=== PATIENT | female | born 1955 | race Caucasian/White ===

== ENCOUNTER 2023-03-18 08:13 | Observation (INO) | payer MEDICARE ==
[~2023-03-18] VITALS: Ht 162.6 cm; Wt 54.4 kg
[2023-03-18] MEDS ORDERED: Amoxicillin500 MG PO (08:34)
[2023-03-18] MEDS ORDERED: FLOVENT HFA12 GM IH (08:34)
[2023-03-18] MEDS ORDERED: PRED20 PO (08:35)
[2023-03-18 09:27] LABS: BASOPHILS ABSOLUTE AUTO 0.08 K/mm3 (0.00-0.23); BASOPHILS PERCENT AUTO 1 % (0-2); EOSINOPHILS ABSOLUTE AUTO 0.03 K/mm3 (0.00-0.68); EOSINOPHILS PERCENT AUTO 0 % (0-6); Hematocrit 46.1 % (33.0-51.0); Hemoglobin 15.4 g/dL (11.5-16.0); IMMATURE GRAN ABSOLUTE AUTO 0.02 K/mm3 (0.00-0.10); IMMATURE GRAN PERCENT AUTO 0 % (0-1); LYMPHOCYTES ABSOLUTE AUTO 1.36 K/mm3 (0.84-5.20); LYMPHOCYTES PERCENT AUTO 13 % (21-46); MONOCYTES ABSOLUTE AUTO 0.85 K/mm3 (0.16-1.47); MONOCYTES PERCENT AUTO 8 % (4-13); Mean Corpuscular HGB 30.7 pg (26.0-34.0); Mean Corpuscular HGB Conc 33.4 g/dL (31.5-36.5); Mean Corpuscular Volume 92 fL (80-100); Mean Platelet Volume 9.6 fL (9.1-12.4); NEUTROPHILS ABSOLUTE AUTO 8.41 K/mm3 (1.96-9.15); NEUTROPHILS PERCENT AUTO 78 % (41-73); Platelet Count 297 K/mm3 (150-400); RDW Coefficient Variation 13.2 % (11.7-14.2); RDW Standard Deviation 44.2 fL (35.1-46.3); Red Blood Cell Count 5.02 M/mm3 (3.80-5.20); White Blood Cell Count 10.75 K/mm3 (4.00-11.30)
[2023-03-18 09:51] LABS: Albumin, Blood 3.2 g/dL (3.4-5.0); Albumin/Globulin Ratio 0.9 (0.8-1.8); Bilirubin, Total 0.3 mg/dL (0.1-1.0); Bun/Creatinine Ratio 14.7 (12.0-20.0); Calcium, Blood 8.8 mg/dL (8.5-10.1); Creatinine, Blood 0.68 mg/dL (0.40-1.00); Globulin, Blood 3.6 g/dL (2.2-4.0); Potassium, Blood 4.5 mmol/L (3.5-5.5); Total Protein, Blood 6.8 g/dL (6.4-8.2)
[2023-03-18 10:00] LABS: Influenza A, PCR NEGATIVE (NEGATIVE); Influenza B, PCR NEGATIVE (NEGATIVE); Resp Syncytial Virus, PCR NEGATIVE (NEGATIVE); SARS-Cov-2 (COVID-19) PCR, MMC NEGATIVE (NEGATIVE)
[2023-03-18 13:33] LABS: International Normalized Ratio 0.96; Prothrombin Time Results 10.1 Sec (9.7-11.5)
[2023-03-18 13:36] VITALS: BP 152/72
--- NOTE | 2023-03-18 13:43 | NUR ---
ER ADMIT PT REPORT RECIVED FROM ER. PT ARRIVED VIA GURNEY. IN ATTENDANCE. PT A/O IN NO ACUTE DISTRESS. CRYING. TRANSFERED PT WITH SLIDER SHEET AND 4 ASSIST TO NEW BED. PT TOLERATED WELL. CONTINUE POC.
--- NOTE | 2023-03-18 16:09 | NUR ---
Spoke with Dr Cameron and discussed case. Pt likely to D/C tomorrow and may benefit from discussion regarding AD/POLST. Arrived to Pt's room. Pt on her way for ultrasound guided thoracentesis. Spouse Ashish remains in the room. Ashish appears to be experiencing some emotional distress. Offered therapeutic listening and validated concerns. Allowed Ashish to discuss thoughts and fears. Continued supportive visit. Spoke with Primary RN Tiffanie and discussed case. Palliative Care will F/U with Pt and family tomorrow to discuss AD/POLST.
--- NOTE | 2023-03-18 16:47 | NUR ---
POST THORACENTISIS PT RETURNED FROM THORACENTESIS. SHE VOICED IMPROVED BREATHING EFFORT. VOICE MORE CLEAR. LESS STRAINED. BAND AIDE TO RIGHT CHEST CD&I. SPOUCE AT BEDSIDE. CONTINUE POC.
[2023-03-18 19:36] VITALS: BP 141/74
[2023-03-19 02:37] VITALS: BP 127/76
[2023-03-19 07:52] VITALS: BP 128/75
--- NOTE | 2023-03-19 11:46 | NUR ---
Pt resting in bed and is A&OX4. Pt denies pain, nausea, and dyspnea. Pt reports mild but manageable anxiety. Pt's spouse Ashish at bedside. Engaged in discussion regarding advanced directives and POLST. Educated on choices and meanings of life support and tube feedings. Educated on life sustaining treatments including risks and implications to CPR/Intubation. Discussed the importance of appointing a healthcare route sales representative. Offered therapeutic listening and answered questions. Dr Cameron in to see Pt. Ended visit. Palliative Care will remain available
[2023-03-19] MEDS ORDERED: IPRAT-ALBUT 0.5-3 ML INH (11:56)
[2023-03-19] MEDS ORDERED: ALBU8HFA2 INH (11:58)
--- NOTE | 2023-03-19 13:17 | NUR ---
DISCHARGE NOTE- PT WAS GIVEN VERBAL AND WRITTEN DISCHARGE INSTRUCTIONS AND ACKNOWLEDGED UNDERSTANDING OF THEM. PT HAS A FOLLOW UP WITH DR OCNNOR SCHEDULED FOR 03-24-23 AT 3:15. THEY ARE AWARE. H&P, IMAGES, DISCHARGE SUMMARY, AND LABS ALL FAXED TO DR CONNOR'S OFFICE WITH FACE SHEET. CYTOLOGY REPORT NOT BACK YET SO NOT FAXED AT THIS TIME. SPOKE TO PATHOLOGY AND A COPY WILL BE SENT TO DR CONNOR'S OFFICE WHEN IT GENERATES. PT IV'S AND TELE DC'D AT THE TIME OF DISCHARGE. PT ESCORTED OUT VIA WC NO S&S OF DISTRESS AT THE TIME OF DISCHARGE. HOME O2 EVAL COMPLETED PRIOR TO DISCHARGE NO O2 NEEDS. PT ON ROOM AIR AT THE TIME OF DISCHARGE.
== END 2023-03-19 13:14 | disposition home or self-care (01) ==
LOC: ER 08:13 → MEDS 11:49 → ENPENDDIS 03-19 11:09 → MEDS 03-19 13:14
PROVIDERS: Student in an Organized Health Care Education/Training Program; ADMIT Internal Medicine
DX: J91.0 Malignant pleural effusion (principal); J96.01 Acute respiratory failure with hypoxia; J44.9 Chronic obstructive pulmonary disease, unspecified; R64 Cachexia; Z72.0 Tobacco use; Z88.0 Allergy status to penicillin
CPT/HCPCS: 0241U; 32555; 71045; 71260; 80053; 83880; 84145; 85025; 85610; 85730; 88108; 88305; 88341; 88342; 93005; 93010; 94640; 94644; 94664; 94760; 94761; 96374-59; 99285-25; A9270; G0378; J1100; J7512; Q9967

== ENCOUNTER 2023-04-02 14:22 | Day surgery (SDC) | payer MEDICARE ==
[~2023-04-02 14:22] MED LIST: ALBU8HFA2 INH; Amoxicillin500 MG PO; FLOVENT HFA12 GM IH; IPRAT-ALBUT 0.5-3 ML INH; PRED20 PO
== END 2023-04-02 23:49 | disposition home or self-care (01) ==
LOC: US 14:22
DX: C34.11 Malignant neoplasm of upper lobe, right bronchus or lung (principal)
CPT/HCPCS: 32555; 71045

== ENCOUNTER 2023-04-08 09:25 | Day surgery (SDC) | payer MEDICARE | END 2023-04-08 22:48 | disposition home or self-care (01) | LOC: US 09:25 | DX: C34.11 Malignant neoplasm of upper lobe, right bronchus or lung (principal) | CPT/HCPCS: 32555; 71045 ==

== ENCOUNTER 2023-04-15 09:21 | Day surgery (SDC) | payer MEDICARE | END 2023-04-15 22:51 | disposition home or self-care (01) | LOC: US 09:21 | DX: C34.11 Malignant neoplasm of upper lobe, right bronchus or lung (principal) | CPT/HCPCS: 32555; 71045 ==

== ENCOUNTER 2023-04-22 14:55 | Day surgery (SDC) | payer MEDICARE | END 2023-04-22 22:53 | disposition home or self-care (01) | LOC: US 14:55 | DX: C34.11 Malignant neoplasm of upper lobe, right bronchus or lung (principal); J91.0 Malignant pleural effusion | CPT/HCPCS: 32555; 71045 ==

== ENCOUNTER 2023-04-28 14:37 | Day surgery (SDC) | payer MEDICARE | END 2023-04-28 23:13 | disposition home or self-care (01) | LOC: US 14:37 | DX: C34.11 Malignant neoplasm of upper lobe, right bronchus or lung (principal); J91.0 Malignant pleural effusion | CPT/HCPCS: 32555; 71045 ==

== ENCOUNTER 2023-05-06 09:37 | Day surgery (SDC) | payer MEDICARE | END 2023-05-06 23:00 | disposition home or self-care (01) | LOC: US 09:37 | DX: C34.11 Malignant neoplasm of upper lobe, right bronchus or lung (principal); J91.0 Malignant pleural effusion | CPT/HCPCS: 76604 ==

== ENCOUNTER 2023-05-13 08:32 | Day surgery (SDC) | payer MEDICARE | END 2023-05-13 23:02 | disposition home or self-care (01) | LOC: US 08:32 | DX: C34.11 Malignant neoplasm of upper lobe, right bronchus or lung (principal); J91.0 Malignant pleural effusion; J44.9 Chronic obstructive pulmonary disease, unspecified; Z87.891 Personal history of nicotine dependence; Z79.899 Other long term (current) drug therapy | CPT/HCPCS: 76604 ==

== ENCOUNTER → 2023-05-20 | Outpatient (CLI) | payer MEDICARE ==
[2023-05-20 08:08] LABS: International Normalized Ratio 0.95
== END ==
LOC: LAB SHORT 07:28 → LAB 07:28
PROVIDERS: Internal Medicine Hematology & Oncology
DX: C34.90 Malignant neoplasm of unspecified part of unspecified bronchus or lung (principal); J91.0 Malignant pleural effusion; Z79.82 Long term (current) use of aspirin
CPT/HCPCS: 85610

== ENCOUNTER 2023-11-19 09:05 | Emergency (ER) | payer MEDICARE ==
[~2023-11-19] VITALS: Ht 160 cm; Wt 58.5 kg
[2023-11-19 10:06] VITALS: BP 112/95
[2023-11-19] MEDS ORDERED: MAGNESIUM OXID500 MG PO (10:19)
[2023-11-19] MEDS ORDERED: LEVO750 PO (10:19)
[2023-11-19] MEDS ORDERED: Vitamin D1000 UNI1 PO (10:19)
[2023-11-19] MEDS ORDERED: DOCU100 PO (10:19)
== END 2023-11-19 11:10 | disposition home or self-care (01) ==
LOC: ER 09:05
DX: I82.611 Acute embolism and thrombosis of superficial veins of right upper extremity (principal); J45.909 Unspecified asthma, uncomplicated; Z79.899 Other long term (current) drug therapy
CPT/HCPCS: 93971; 99283-25

== ENCOUNTER 2024-01-26 09:31 | Emergency (ER) | payer OTHER, MEDICARE ==
[~2024-01-26] VITALS: Ht 162.6 cm; Wt 57.1 kg
[~2024-01-26 09:31] MED LIST changes: +DOCU100 PO; +LEVO750 PO; +MAGNESIUM OXID500 MG PO; +Vitamin D1000 UNI1 PO
[2024-01-26 09:37] VITALS: BP 128/85
== END 2024-01-26 11:23 | disposition home or self-care (01) ==
LOC: ER 09:31
DX: S61.411A Laceration without foreign body of right hand, initial encounter (principal); W01.10XA Fall on same level from slipping, tripping and stumbling with subsequent striking against unspecified object, initial encounter
CPT/HCPCS: 73130; 99283-25

== ENCOUNTER 2024-08-28 09:46 | Inpatient (IN) | payer MEDICARE ==
[~2024-08-28] VITALS: Ht 167.6 cm; Wt 55.4 kg
[~2024-08-28 09:46] MED LIST changes: -ALBU8HFA2 INH; +ALBU90OI INH
[2024-08-28 10:21] LABS: Hematocrit 32.5 % (33.0-51.0); Hemoglobin 10.7 g/dL (11.5-16.0); Mean Corpuscular HGB 33.8 pg (26.0-34.0); Mean Corpuscular HGB Conc 32.9 g/dL (31.5-36.5); Mean Corpuscular Volume 103 fL (80-100); Mean Platelet Volume 9.1 fL (9.1-12.4); Platelet Count 182 K/mm3 (150-400); RDW Coefficient Variation 13.9 % (11.7-14.2); RDW Standard Deviation 52.8 fL (35.1-46.3); Red Blood Cell Count 3.17 M/mm3 (3.80-5.20); White Blood Cell Count 12.49 K/mm3 (4.00-11.30)
[2024-08-28 10:44] LABS: IMMATURE GRAN ABSOLUTE AUTO 0.64 K/mm3 (0.00-0.10); IMMATURE GRAN PERCENT AUTO 5 % (0-1)
[2024-08-28 10:45] LABS: BASOPHILS PERCENT MAN 0 % (0-2); EOSINOPHILS PERCENT MAN 0 % (0-6); LYMPHOCYTES ABSOLUTE MAN 0.74 K/mm3 (0.84-5.20); LYMPHOCYTES PERCENT MAN 6 % (21-46); MONOCYTES ABSOLUTE MAN 0.37 K/mm3 (0.16-1.47); MONOCYTES PERCENT MAN 3 % (4-13); NEUTROPHILS ABSOLUTE MAN 11.36 K/mm3 (1.96-9.15); SEG NEUTROPHILS PERCENT MAN 91 % (41-73); TOTAL CELLS COUNTED 100
[2024-08-28 11:05] LABS: Albumin, Blood 3.4 g/dL (3.4-5.0); Albumin/Globulin Ratio 0.9 (0.8-1.8); Bilirubin, Total 0.3 mg/dL (0.1-1.0); Bun/Creatinine Ratio 14.7 (12.0-20.0); Calcium, Blood 8.9 mg/dL (8.5-10.1); Creatinine, Blood 0.75 mg/dL (0.40-1.00); Globulin, Blood 3.8 g/dL (2.2-4.0); Potassium, Blood 3.9 mmol/L (3.5-5.5); Total Protein, Blood 7.2 g/dL (6.4-8.2)
[2024-08-28 11:41] LABS: Influenza A, PCR NEGATIVE (NEGATIVE); Influenza B, PCR NEGATIVE (NEGATIVE); Resp Syncytial Virus, PCR NEGATIVE (NEGATIVE); SARS-Cov-2 (COVID-19) PCR, MMC NEGATIVE (NEGATIVE)
[2024-08-28] MEDS ORDERED: Ondansetron 4 MG TAB PO PRN (16:40)
[2024-08-28] MEDS ORDERED: FLU VACC TS2024-25(6MOS UP)/PF 45 MCG/0.5 ML SYRINGE IM SCH (16:40)
[2024-08-28 16:49] LABS: International Normalized Ratio 1.03
[2024-08-28] MEDS ORDERED: Azithromycin 500 MG in NS 250 ML IV SCH (18:00)
[2024-08-28] MEDS ORDERED: CefTRIAXone Sodium 1,000 MG in NS 100 ML IV SCH (18:00)
[2024-08-28 20:55] VITALS: BP 108/72
--- NOTE | 2024-08-28 21:54 | NUR ---
ADMIT NOTE 69 YR OLD FEMALE ADMITTED TO FLOOR WITH DX OF MALIGNANT PLEURAL EFFUSION. ACCOMPANIED BY . ALERT AND ORIENTED, QUIET. HX LUNG CA, LUNG SOUNDS DIMINISHED AND WET. ON O2 PER NC AT 4L/MIN. HOB ELEVATED. REPORTS SEVERE ALLERGY TO DAIRY PRODUCTS, "ANAPHYLACTIC" ISSUES IN THE PAST. ALERT AND ORIENTED X 4, ORIENTED TO USE OF CALL LIGHT AND BED CONTROL. CALL LIGHT IN REACH. RAILS UP X 2 AND AGREES TO USE CALL LIGHT IF NEEDS ARRISE. THORACENTESIS ORDERED FOR TOMORROW. NOTIFIED OF RESP ISSUSE, CONT PULSE OX ORDERS OBTAINED, RT NOTIFIED. WILL MONITOR
--- NOTE | 2024-08-28 22:54 | NUR ---
LEFT EARLIER, PT RESTING QUIETLY. RT TO PLACE CONTINUOUS PULSE OX. CALL LIGHTIN REACH
[2024-08-29] MEDS ORDERED: TraZODone HCl 50 MG Tab PO PRN (00:30)
--- NOTE | 2024-08-29 03:16 | NUR ---
HUMAN RESOURCES ADVISOR SUMMARY WAS ADMITTED EARLIER IN THE SHIFT WITH DX OF MALIGNANT PLEURAL EFFUSION. ALERT AND ORIENTED. LUNG SOUUNDS DIMINISHED, WET. ON HUMIDIFIED O2 4L/MIN PER NC. PLACED ON CONTINUOUS PULSE OX, SATS IN THE 90'S AND HR IN THE 70'S. HOB ELEVATED FOR COMFORT. HAS BEEN RESTING QUIETLY WITH OCCASIONAL INTERRUPTIONS FOR CHANGING DUE TO INCONTENENCE. CALL LIGHT IN REACH, RAILS UP X 2 AND BED IN LOW POSITION FOR SAFETY. SCHEDULED FOR POSSIBLE THORACENTESIS LATER TODAY. WILL CONT TO MONITOR.
[2024-08-29 04:38] VITALS: BP 98/60
[2024-08-29 05:33] LABS: Hematocrit 30.7 % (33.0-51.0); Mean Corpuscular HGB 33.6 pg (26.0-34.0); Mean Corpuscular HGB Conc 32.6 g/dL (31.5-36.5); Mean Corpuscular Volume 103 fL (80-100); Mean Platelet Volume 9.3 fL (9.1-12.4); Platelet Count 146 K/mm3 (150-400); RDW Coefficient Variation 13.9 % (11.7-14.2); RDW Standard Deviation 52.7 fL (35.1-46.3); Red Blood Cell Count 2.98 M/mm3 (3.80-5.20); White Blood Cell Count 7.31 K/mm3 (4.00-11.30)
[2024-08-29 06:05] LABS: BAND PERCENT MAN 24 % (0-8); BASOPHILS PERCENT MAN 0 % (0-2); EOSINOPHILS PERCENT MAN 0 % (0-6); LYMPHOCYTES ABSOLUTE MAN 0.65 K/mm3 (0.84-5.20); LYMPHOCYTES PERCENT MAN 9 % (21-46); MONOCYTES ABSOLUTE MAN 0.36 K/mm3 (0.16-1.47); MONOCYTES PERCENT MAN 5 % (4-13); NEUTROPHILS ABSOLUTE MAN 6.21 K/mm3 (1.96-9.15); PLASMA CELL ABSOLUTE MAN 0.07 K/mm3 (0.00-0.00); PLASMA CELLS PERCENT MAN 1 % (0-0); SEG NEUTROPHILS PERCENT MAN 61 % (41-73); TOTAL CELLS COUNTED 100
[2024-08-29 06:52] LABS: Albumin/Globulin Ratio 0.8 (0.8-1.8); Bilirubin, Total 0.3 mg/dL (0.1-1.0); Bun/Creatinine Ratio 15.3 (12.0-20.0); Calcium, Blood 8.3 mg/dL (8.5-10.1); Creatinine, Blood 0.72 mg/dL (0.40-1.00); Globulin, Blood 3.6 g/dL (2.2-4.0); Magnesium, Blood 1.8 mg/dL (1.6-2.4); Potassium, Blood 4.2 mmol/L (3.5-5.5); Total Protein, Blood 6.6 g/dL (6.4-8.2)
[2024-08-29 07:55] VITALS: BP 104/62
[2024-08-29] MEDS ORDERED: Enoxaparin 40 MG/0.4 ML SYR SC SCH (09:00)
[2024-08-29] MEDS ORDERED: Acetaminophen 325 MG TABLET PO PRN (12:15)
[2024-08-29] MEDS ORDERED: OxyCODONE HCL 5 MG TAB PO PRN (12:20)
[2024-08-29] MEDS ORDERED: Acetaminophen325 M1 PO (12:23)
[2024-08-29] MEDS ORDERED: Acetaminophen 160MG / 5ML 10.15 UDC PO PRN (13:15)
[2024-08-29] MEDS ORDERED: Lactated Ringer's 1,000 ML IV SCH (16:15)
[2024-08-29] MEDS ORDERED: NS 250 ML IV PRN (16:25)
[2024-08-29 17:54] VITALS: BP 91/59
--- NOTE | 2024-08-29 18:27 | NUR ---
SHIFT SUMMARY PATIENT ALERT AND INTERACTIVE. PATIENT SITTING UP AT BEDSIDE FOR MEALS. R SIDE THORACENTESIS DONE WITH 1000 OUT. PATIENT TO POSSIBLY HAVE THE L SIDE DONE TOMORROW. PATIENT WEAK AND ONLY VERBALIZING SORENESS AT R SIDE AND WHEN SHE TAKES A DEEP BREATH. 02 TITRATED DOWN TO 2-3 LITERS AFTER THORACENTESIS. BP LOW AFTER THORACENTESIS. PROVIDER CONTACTED. IV FLUIDS INITIATED. BP REPEATED AFTER FLUIDS INITIATED. BP IMPROVED. PATIENT ENCOURAAGED TO DRINK MORE FLUIDS. EDUCATION PROVIDED TO PATIENT AND RELATED TO FLUID SHIFT AFTER THORACENTESIS, KIDNEY PERFUSION.
[2024-08-29 19:20] VITALS: BP 92/58
[2024-08-30 03:25] VITALS: BP 99/63
--- NOTE | 2024-08-30 03:38 | NUR ---
PERSONAL INVESTMENT ADVISER SUMMARY BP LOW NORMAL, OTHERWISE, VSS. ALERT AND ORIENTED. HOB ELEVATED, HOB ELEVATED AND ON O2 PER NC - SATS REMAIN IN THE 90'S WITH OCCASIONAL DROPS, WAS AWAKENED A FEW TIMES TO ENCOURAGE HER TO TAKE DEEP BREATHS. BANDAID OF RIGHT SIDE BACK CDI (AREA OF THORACENTESIS DONE YESTERDAY). POSSIBLE THORACENTESIS SCHEDULED FOR LEFT SIDE LATER TODAY. ASYMPTOMATIC. DENIED DISTRESS OR PAIN WHEN ASKED. ABLE TO REPOSITION SELF IN BED FOR COMFORT. CALL LIGHT IN REACH, ARILS UP X 2 AND BED IN LOW POSITION FOR SAFETY. WILL CONTINUE TO MONITOR
[2024-08-30 05:52] LABS: Hematocrit 27.4 % (33.0-51.0); Mean Corpuscular HGB Conc 32.8 g/dL (31.5-36.5); Mean Corpuscular Volume 103 fL (80-100); Mean Platelet Volume 9.9 fL (9.1-12.4); Platelet Count 122 K/mm3 (150-400); RDW Coefficient Variation 14.1 % (11.7-14.2); Red Blood Cell Count 2.65 M/mm3 (3.80-5.20); White Blood Cell Count 6.68 K/mm3 (4.00-11.30)
[2024-08-30 06:11] LABS: Albumin, Blood 2.8 g/dL (3.4-5.0); Albumin/Globulin Ratio 0.8 (0.8-1.8); BAND PERCENT MAN 5 % (0-8); BASOPHILS PERCENT MAN 0 % (0-2); Bilirubin, Total 0.2 mg/dL (0.1-1.0); Bun/Creatinine Ratio 15.6 (12.0-20.0); Calcium, Blood 8.3 mg/dL (8.5-10.1); Creatinine, Blood 0.71 mg/dL (0.40-1.00); EOSINOPHILS ABSOLUTE MAN 0.13 K/mm3 (0.00-0.68); EOSINOPHILS PERCENT MAN 2 % (0-6); Globulin, Blood 3.4 g/dL (2.2-4.0); LYMPHOCYTES % ATYPICAL MANUAL 1 % (0-0); LYMPHOCYTES PERCENT MAN 17 % (21-46); MONOCYTES ABSOLUTE MAN 0.53 K/mm3 (0.16-1.47); MONOCYTES PERCENT MAN 8 % (4-13); Magnesium, Blood 1.7 mg/dL (1.6-2.4); Potassium, Blood 4.1 mmol/L (3.5-5.5); SEG NEUTROPHILS PERCENT MAN 67 % (41-73); TOTAL CELLS COUNTED 100; Total Protein, Blood 6.2 g/dL (6.4-8.2)
[2024-08-30 07:52] VITALS: BP 100/66
[2024-08-30 15:57] VITALS: BP 97/56
--- NOTE | 2024-08-30 18:24 | NUR ---
SHIFT SUMMARY PATIENT ALERT AND INTERACTIVE BUT WEAK. PATIENT ABLE TO ASSIST WITH TURNING IN BED. PATIENT PREFERS TO LAY ON L SIDE. REPEAT CXR DONE TODAY. CT SCAN ALSO DONE. DR ARENAS TALKED WITH PATIENT AND ABOUT POSSIBLY PLACING PLEURIX DRAIN SINCE R LUNG FILLED WITH FLUID AGAIN. RADIOLOGY TO REVIEW FILMS. PT CONTINUES ON 2-5 L 02 BASED ON WHICH SIDE SHE LAYS ON. PATIENT MEDICATED X1 WITH TYLENOL FOR CHEST SORENESS. AT BEDSIDE MOST OF THE DAY. VERY SUPPORTIVE.
[2024-08-30 19:26] VITALS: BP 94/52
[2024-08-30] MEDS ORDERED: Lactobacil 2-S.Thermo-Bifido 1 1 Cap PO SCH (21:00)
[2024-08-30] MEDS ORDERED: Albuterol 2.5 MG/3 ML VIAL INH PRN (21:25)
[2024-08-31 04:24] VITALS: BP 106/73
--- NOTE | 2024-08-31 05:26 | NUR ---
SHIFT SUMMARY NOC PT A/O X 4. PLEASANT AND COOPERATIVE WITH CARE. VSS. PT REFUSED BEDTIME TRAZADONE, AND ORDER DC BY HOSPITALIST. PT MOUTH BREATHS WHILE ASLEEP AND HOLDS BREATH DROPPING SATS INTO LOW 80'S. PT USING OXYMASK 8-10L TO MAINTAIN SPO2 >90%. PT THEN SWITCHED TO NON REBREATHER 4-6L IN AM DUE TO DESAT TO MID TO HIGH 70'S, NOW MAINTAINING SPO2 >94%. PUREWICK IN PLACE FOR INCONTINENCE. PT SWALLOW WEAK WHEN TYLENOL GIVEN AND PROBIOTIC HELD DUE TO ASPIRATION RISK. PT CURRENTLY RESTING WITH BED IN LOWEST POSITION, AND CALL LIGHT WITHIN REACH.
[2024-08-31 05:29] LABS: Hematocrit 27.8 % (33.0-51.0); Hemoglobin 8.8 g/dL (11.5-16.0); LYMPHOCYTES ABSOLUTE AUTO 0.91 K/mm3 (0.84-5.20); LYMPHOCYTES PERCENT AUTO 11 % (21-46); MONOCYTES ABSOLUTE AUTO 0.67 K/mm3 (0.16-1.47); MONOCYTES PERCENT AUTO 8 % (4-13); Mean Corpuscular HGB 32.6 pg (26.0-34.0); Mean Corpuscular HGB Conc 31.7 g/dL (31.5-36.5); Mean Corpuscular Volume 103 fL (80-100); Mean Platelet Volume 9.9 fL (9.1-12.4); Platelet Count 104 K/mm3 (150-400); RDW Coefficient Variation 14.1 % (11.7-14.2); White Blood Cell Count 8.08 K/mm3 (4.00-11.30)
[2024-08-31 05:31] LABS: BASOPHILS ABSOLUTE AUTO 0.02 K/mm3 (0.00-0.23); BASOPHILS PERCENT AUTO 0 % (0-2); EOSINOPHILS ABSOLUTE AUTO 0.04 K/mm3 (0.00-0.68); EOSINOPHILS PERCENT AUTO 1 % (0-6); IMMATURE GRAN PERCENT AUTO 1 % (0-1); NEUTROPHILS ABSOLUTE AUTO 6.34 K/mm3 (1.96-9.15); NEUTROPHILS PERCENT AUTO 79 % (41-73)
[2024-08-31 05:52] LABS: Magnesium, Blood 1.4 mg/dL (1.6-2.4)
[2024-08-31 05:53] LABS: Albumin, Blood 2.8 g/dL (3.4-5.0); Albumin/Globulin Ratio 0.8 (0.8-1.8); Bilirubin, Total 0.2 mg/dL (0.1-1.0); Bun/Creatinine Ratio 13.4 (12.0-20.0); Calcium, Blood 8.3 mg/dL (8.5-10.1); Creatinine, Blood 0.82 mg/dL (0.40-1.00); Globulin, Blood 3.5 g/dL (2.2-4.0); Total Protein, Blood 6.3 g/dL (6.4-8.2)
[2024-08-31 06:20] LABS: BAND PERCENT MAN 5 % (0-8); BASOPHILS PERCENT MAN 0 % (0-2); EOSINOPHILS PERCENT MAN 0 % (0-6); LYMPHOCYTES ABSOLUTE MAN 1.13 K/mm3 (0.84-5.20); LYMPHOCYTES PERCENT MAN 14 % (21-46); MONOCYTES ABSOLUTE MAN 0.56 K/mm3 (0.16-1.47); MONOCYTES PERCENT MAN 7 % (4-13); NEUTROPHILS ABSOLUTE MAN 6.38 K/mm3 (1.96-9.15); SEG NEUTROPHILS PERCENT MAN 74 % (41-73); TOTAL CELLS COUNTED 100
[2024-08-31 07:02] VITALS: BP 111/68
[2024-08-31] MEDS ORDERED: Arginine/Glutamine/Calcium Hmb 1 Packet PO SCH (09:00)
[2024-08-31] MEDS ORDERED: Magnesium Oxide 400 MG Tab PO SCH (09:00)
[2024-08-31] MEDS ORDERED: Magnesium Sul 4 GM/Water100 ML 100 ML IV ONE (14:30)
--- NOTE | 2024-08-31 14:54 | NUR ---
Spiritual care visit conducted. Patient is lying in bed and alert, spouse, Ashish is bedside. They explain about the dire medical situation that the patient is in and the the places that they have found glimses of stability. Ashish speaks about his philosophy and theology of life and the patient motions her agreement. They talk about the ways they have tried to make a positive impact on this planet by serving the vulnerable and broken. They also share about what is meaningful and important in this season. I reinforced helpful perspectives, normalized their hopes and fears and provided therapeutic listening and prayer. Both patient and Ashish displayed evidence of greater peace and gratitude for the visit.
--- NOTE | 2024-08-31 15:23 | NUR ---
GOALS OF CARE/SUPPORTIVE VISIT NEW POLST FORM COMPLETED TO REFLECT DNR/LIMITED MEDICAL INTERVENTIONS. PHOTO COPY OBTAINED OF COMPLETED ADVANCE DIRECTIVE. BOTH POLST AND ADVANCE DIRECTIVE COPIED AND SENT TO MEDICAL RECORDS, [facility] MEDICAL RECORDS, [facility] ONCOLOGY. POLST SENT TO THE [place] POLST REGISTRY. MET WITH PT AND HER SPOUSE AT BEDSIDE. PT IS VERY PLEASANT. ABLE TO MAKE NEEDS KNOWN. 2-3 WORD DYSPNEA WITH OXYMASK IN PLACE. FATIGUE NOTED. SHE REPORTS, "I WAS ABLE TO TAKE A LITTLE NAP THIS AFTERNOON. I HAVEN'T BEEN SLEEPING." REVIEWED PT'S HEALTH JOURNEY OVER THE LAST YEAR AND A HALF. PT REPORTS BEING 100% INDEPENDENT IN ALL ADL/IDLS. OVER THE LAST YEAR, SINCE STARTING ON CHEMO TX, HER NEEDS HAVE INCREASED. AMBULATING WITH 2WW AND SBA. NO OXYGEN NEEDS AT BASELINE. PT AND SPOUSE VOICE WANTING TO CONTINUE WITH TREATMENT WHILE IN THE HOSPITAL. PLAN IS TO REASSES GOALS OF CARE UPON DISCHARGE HOME WITH POSSIBILITY OF HOSPICE. PC TO REMAIN AVAILABLE.
[2024-08-31 16:00] VITALS: BP 106/66
--- NOTE | 2024-08-31 17:45 | NUR ---
SHIFT SUMMARY. PATIENT ALERT AND INTERACTIVE. PATENT ABLE TO MAKE NEEDS KNOWN. AT BEDSIDE MOST OF THE DAY. PATIENT TAKEN DOWN TO CT, L LUNG THORACENTISIS DONE. ECHO DONE. SURGICAL CONSULT PLACED FOR PLEURX DRAIN. PATIENT CONTINUES TO NEED O2 TITRATED BASED ON POSITION AND BIOX. PATIENT NEEDING REMINDED TO TAKE DEEP BREATHS. PATIENT ONLY HAVING SORENESS AFTER PROCEDURE. PALLIATIVE CARE SPOKE WITH PATIENT AND TODAY. PASTORAL CARE ALSO VISITED WITH AND PATIENT.
[2024-08-31 20:51] VITALS: BP 94/57
[2024-08-31] MEDS ORDERED: Polyethylene Glycol 3350 17 gm PO SCH (21:00)
[2024-08-31] MEDS ORDERED: Docusate Sodium/Senna 1 Tab PO SCH (21:00)
[2024-09-01 02:27] VITALS: BP 93/69
[2024-09-01 04:53] LABS: Hematocrit 27.5 % (33.0-51.0); Hemoglobin 8.9 g/dL (11.5-16.0); Mean Corpuscular HGB 33.7 pg (26.0-34.0); Mean Corpuscular HGB Conc 32.4 g/dL (31.5-36.5); Mean Corpuscular Volume 104 fL (80-100); Mean Platelet Volume 9.3 fL (9.1-12.4); Platelet Count 102 K/mm3 (150-400); RDW Coefficient Variation 14.3 % (11.7-14.2); Red Blood Cell Count 2.64 M/mm3 (3.80-5.20); White Blood Cell Count 13.89 K/mm3 (4.00-11.30)
[2024-09-01 05:05] LABS: International Normalized Ratio 0.98; Prothrombin Time Results 10.5 Sec (9.7-11.5)
[2024-09-01 05:10] LABS: Albumin, Blood 2.9 g/dL (3.4-5.0); Albumin/Globulin Ratio 0.8 (0.8-1.8); Bilirubin, Total 0.2 mg/dL (0.1-1.0); Bun/Creatinine Ratio 12.9 (12.0-20.0); Calcium, Blood 8.4 mg/dL (8.5-10.1); Creatinine, Blood 0.85 mg/dL (0.40-1.00); Globulin, Blood 3.6 g/dL (2.2-4.0); Magnesium, Blood 2.1 mg/dL (1.6-2.4); Total Protein, Blood 6.5 g/dL (6.4-8.2)
[2024-09-01 05:16] LABS: BAND PERCENT MAN 13 % (0-8); BASOPHILS PERCENT MAN 0 % (0-2); EOSINOPHILS PERCENT MAN 0 % (0-6); LYMPHOCYTES ABSOLUTE MAN 0.69 K/mm3 (0.84-5.20); LYMPHOCYTES PERCENT MAN 5 % (21-46); METAMYELOCYTE ABSOLUTE MAN 0.13 K/mm3 (0.00-0.00); METAMYELOCYTE PERCENT MAN 1 % (0-0); MONOCYTES ABSOLUTE MAN 1.11 K/mm3 (0.16-1.47); MONOCYTES PERCENT MAN 8 % (4-13); NEUTROPHILS ABSOLUTE MAN 11.94 K/mm3 (1.96-9.15); SEG NEUTROPHILS PERCENT MAN 73 % (41-73); TOTAL CELLS COUNTED 100
--- NOTE | 2024-09-01 05:33 | NUR ---
SHIFT SUMMARY NOC PT A/O X 4. PLEASANT AND COOPERATIVE WITH CARE. VSS. PT USING 4L/NC WHILE AWAKE SPO2 >92%, BUT DESATS INTO LOW 80'S WHILE ASLEEP AND REQUIRES NON REBREATHER @ 10L/NC TO MAINTAIN SPO2 >92%. PT HAD L PLEURACENTESIS YESTERDAY. SURGICAL CONSULT WITH DR HURD CALLED IN YESTERDAY FOR PLEUREX DRAIN PLACEMENT. PAIN FROM PLEURACENTESIS BEING MANAGED PER EMAR. PUREWICK IN PLACE. PT TAKING MEDICATIONS BETTER NOW WHEN GIVEN IN APPLESAUCE. PT CURRENTLY RESTING WITH BED IN LOWEST POSITION, AND CALL LIGHT WITHIN REACH.
[2024-09-01 07:47] VITALS: BP 104/69
[2024-09-01 15:10] VITALS: BP 100/63
--- NOTE | 2024-09-01 15:59 | NUR ---
SHIFT SUMMARY PT RESTING QUIETLY AT START OF SHIFT; WOKE EASILY FOR SHIFT REPORT. PT ON NRB AT 9L O2 D/T MOUTH BREATING AND DESAT. PT WAS NPO SINCE ND FOR POSSIBLE PLEURX DRAIN. DR HURD IN TO SEE PT THIS AM WITH DR ZAPATA TO EXPLAIN PROCEDURE AND PLAN. PT AND SPOUSE BOTH VERBALIZED UNDERSTANDING. PT ABLE TO EAT TODAY AND WILL BE NPO AT ND TONIGHT FOR PLACEMENT OF DRAIN TOMORROW. DR HURD RETURNED THIS AFTERNOON TO PROVIDE UPDATE AND ORDERS PLACED. MEDS TAKEN WHOLE IN APPLESAUCE, PER PT REQUEST. MIRALAX GIVEN WELL, PER EMAR AND PT REQUEST. PT HAS DENIED PAIN AND FURTHER NEEDS. BED BATH TO BE GIVEN SHORTLY; PT AGREEABLE. PT ALSO ABLE TO WORK WITH P/T TODAY DOING BED EXERCISES. GONE HOME AFTER LUNCH. CALL LT IN REACH.
[2024-09-01] MEDS ORDERED: Protein Supplement 30 ML UD PO SCH ×2 (18:00→21:00)
[2024-09-01 20:07] VITALS: BP 88/58
[2024-09-02] VITALS (14 sets, daily range): BP systolic 92–129; BP diastolic 59–80
[2024-09-02 06:11] LABS: Hematocrit 27.1 % (33.0-51.0); Hemoglobin 8.5 g/dL (11.5-16.0); Mean Corpuscular HGB 33.6 pg (26.0-34.0); Mean Corpuscular HGB Conc 31.4 g/dL (31.5-36.5); Mean Corpuscular Volume 107 fL (80-100); Platelet Count 95 K/mm3 (150-400); RDW Coefficient Variation 14.2 % (11.7-14.2); RDW Standard Deviation 55.8 fL (35.1-46.3); Red Blood Cell Count 2.53 M/mm3 (3.80-5.20); White Blood Cell Count 18.13 K/mm3 (4.00-11.30)
[2024-09-02 06:31] LABS: Magnesium, Blood 1.8 mg/dL (1.6-2.4)
[2024-09-02 06:32] LABS: Albumin, Blood 2.8 g/dL (3.4-5.0); Albumin/Globulin Ratio 0.8 (0.8-1.8); Bilirubin, Total 0.1 mg/dL (0.1-1.0); Bun/Creatinine Ratio 15.8 (12.0-20.0); Calcium, Blood 8.2 mg/dL (8.5-10.1); Creatinine, Blood 0.7 mg/dL (0.40-1.00); Globulin, Blood 3.6 g/dL (2.2-4.0); Phosphorus, Blood 2.8 mg/dL (2.5-4.9); Potassium, Blood 3.9 mmol/L (3.5-5.5); Total Protein, Blood 6.4 g/dL (6.4-8.2)
[2024-09-02 06:38] LABS: BAND PERCENT MAN 26 % (0-8); BASOPHILS PERCENT MAN 0 % (0-2); EOSINOPHILS ABSOLUTE MAN 0.36 K/mm3 (0.00-0.68); EOSINOPHILS PERCENT MAN 2 % (0-6); LYMPHOCYTES ABSOLUTE MAN 0.72 K/mm3 (0.84-5.20); LYMPHOCYTES PERCENT MAN 4 % (21-46); MONOCYTES ABSOLUTE MAN 0.36 K/mm3 (0.16-1.47); MONOCYTES PERCENT MAN 2 % (4-13); MYELOCYTE ABSOLUTE MAN 0.18 K/mm3 (0.00-0.00); MYELOCYTE PERCENT MAN 1 % (0-0); NEUTROPHILS ABSOLUTE MAN 16.49 K/mm3 (1.96-9.15); SEG NEUTROPHILS PERCENT MAN 65 % (41-73); TOTAL CELLS COUNTED 100
[2024-09-02] MEDS ORDERED: propofoL 20 ML IV ONE (06:49)
--- NOTE | 2024-09-02 07:25 | NUR ---
SHIFT SUMMARY; PATIENT SLEPT IN LONG INTERVALS. NPO AT MIDNIGHT. O2 8-10L/ NRBM.
[2024-09-02] MEDS ORDERED: Bupivacaine 0.5% HCl 5 MG/ML 30MLVIAL ONE (08:28)
[2024-09-02] MEDS ORDERED: Midazolam HCl 1MG / ML 2ML Vial ONE (09:17)
[2024-09-02] MEDS ORDERED: FentaNYL Citrate 50 MCG/ML 2 ML Injection ONE (09:18)
[2024-09-02] MEDS ORDERED: Ondansetron HCl 2 MG / ML 2ML Vial ONE (09:51)
[2024-09-02 10:51] LABS: PCO2 Arterial 65 mmHg (35-45); PO2 Arterial 76.1 mmHg (80-100); pH Blood Arterial 7.35 (7.35-7.45)
--- NOTE | 2024-09-02 11:04 | NUR ---
TRANFER THIS RN NOTIFIED PT TRANFER TO PCU 12 ONCE ROOM IS CLEANED. REPORT GIVEN TO DOROTA OF PCU.
--- NOTE | 2024-09-02 11:45 | NUR ---
Pt arrived from PACU
[2024-09-02 14:07] LABS: PCO2 Venous 57.2 mmHg (38-42)
[2024-09-02 14:08] LABS: Base Excess Venous 10.5 mmol/L; Bicarbonate Venous 32.8 mmol/L (24.0-30.0)
--- NOTE | 2024-09-02 15:20 | NUR ---
Pt is on oximizer with liter flow of 4/min. Spo2 is maintaining at 94% at rest, 91-92% with sipping water. She is wide awake and tolerating it well. Did say she has surgical site pain 3/10 and headache, so medicated with Tylenol and oxycodone. Took her oral meds with applesauce, tolerated well. Ashish at the bedside and educational materials were given to him for pleural effusion and intermittent pleurx drain. Palliative care following for further education on use of pleurx before she is discharged, whenever that might be. Written Rx for pleurx supplies was given to Ashish.
--- NOTE | 2024-09-02 18:27 | NUR ---
PALLIATIVE CARE NOTE: ATTEMPTED TO VISIT PT TODAY. SHE WAS SLEEPING. PROVIDED HOME PLEURX DRAIN STARTER KIT. UPDATED PRIMARY RN WILL VISIT TOMORROW TO START EDUCATION PROCESS OF USING PLEURX DRAIN KIT.
--- NOTE | 2024-09-02 18:46 | NUR ---
SHIFT SUMMARY PATIENT UPRGRADED FROM MEDICAL FOR INCREASED O2 REQUIREMENTS AFTER HER PLEUREX DRAIN INSERTION. SHE IS AOX4 ABLE TO MAKE HER NEEDS KNOWN. SHE DENIES PAIN AND DENIES SOB. SHE CAME TO THE FLOOR ON 10L NONREBREATHER AND THEN PLACED ON BIPAP. SHE GOT A REPEAT ABG THAT SHOWED CO2 LESS THAN 60 SO PATIENT WAS PLACED ON SIMPLE MASK AT 5L ALTERNATING WITH NASAL CANNULA 4L. SHE IS ABLE TO MAINTAIN 02 SAT GREATER THAN 90 WITH THAT. HER PLUREX DRESSING SITE IS CLEAN DRY AND INTACT. THE WAS AT BEDSIDE AND ALL QUESTIONS WERE ANSWERED. SHE WAS ABLE TO TOLERATE HER LUNCH AND DINNER. SHE WAS INSTRUCTED TO ALTERNATE PRESSURE FROM SIDE TO SIDE ON HER BOTTOM TO PREVENT SKIN BREAKDOWN. CURRENTLY THERE IS NO REDNESS ON HER COCCYX
--- NOTE | 2024-09-02 18:52 | NUR ---
Oxygen delivery titrated up to 10 l/min on oxymizer mask for spo2 86% while asleep wearing the oxymizer. Goal is spo2 greater than 90%.
[2024-09-03 03:37] LABS: Hematocrit 25.3 % (33.0-51.0); Hemoglobin 7.8 g/dL (11.5-16.0); Mean Corpuscular HGB 33.1 pg (26.0-34.0); Mean Corpuscular HGB Conc 30.8 g/dL (31.5-36.5); Mean Corpuscular Volume 107 fL (80-100); Mean Platelet Volume 10.1 fL (9.1-12.4); Platelet Count 91 K/mm3 (150-400); RDW Coefficient Variation 14.5 % (11.7-14.2); RDW Standard Deviation 55.6 fL (35.1-46.3); Red Blood Cell Count 2.36 M/mm3 (3.80-5.20); White Blood Cell Count 18.24 K/mm3 (4.00-11.30)
[2024-09-03 03:55] LABS: Albumin, Blood 2.6 g/dL (3.4-5.0); Albumin/Globulin Ratio 0.8 (0.8-1.8); Bilirubin, Total 0.1 mg/dL (0.1-1.0); Bun/Creatinine Ratio 21.3 (12.0-20.0); Creatinine, Blood 0.61 mg/dL (0.40-1.00); Globulin, Blood 3.2 g/dL (2.2-4.0); Magnesium, Blood 1.5 mg/dL (1.6-2.4); Potassium, Blood 4.1 mmol/L (3.5-5.5); Total Protein, Blood 5.8 g/dL (6.4-8.2)
[2024-09-03 04:02] LABS: BAND PERCENT MAN 22 % (0-8); BASOPHILS PERCENT MAN 0 % (0-2); EOSINOPHILS PERCENT MAN 0 % (0-6); LYMPHOCYTES ABSOLUTE MAN 0.91 K/mm3 (0.84-5.20); LYMPHOCYTES PERCENT MAN 5 % (21-46); METAMYELOCYTE ABSOLUTE MAN 0.18 K/mm3 (0.00-0.00); METAMYELOCYTE PERCENT MAN 1 % (0-0); MONOCYTES ABSOLUTE MAN 0.91 K/mm3 (0.16-1.47); MONOCYTES PERCENT MAN 5 % (4-13); NEUTROPHILS ABSOLUTE MAN 16.23 K/mm3 (1.96-9.15); SEG NEUTROPHILS PERCENT MAN 67 % (41-73); TOTAL CELLS COUNTED 100
--- NOTE | 2024-09-03 04:58 | NUR ---
PT PLEASANT, A&OX4 OVERNIGHT, PO MEDS HELD DUE TO DECREASE IN O2 SATS AND PUT ON 15L O2 DURING SHIFT ON OXYMASK, IVF INFUSING PER ORDER, DENIES PAIN AND SOB, 400CC OUTPUT FROM [employer], VSS. ABLE TO REST WELL, NO CONCERNS AT THIS TIME, PLEUREX SITE WDL.
[2024-09-03 05:01] VITALS: BP 105/70
[2024-09-03 07:49] VITALS: BP 106/68
[2024-09-03] MEDS ORDERED: Lactated Ringer's 1,000 ML IV SCH (09:00)
[2024-09-03] MEDS ORDERED: Cefepime HCl 2,000 MG in NS 100 ML IV SCH (09:30)
[2024-09-03] MEDS ORDERED: Vancomycin HCL 1,250 MG in NS 250 ML IV ONE (10:00)
[2024-09-03 11:07] VITALS: BP 101/64
[2024-09-03 16:28] VITALS: BP 108/67
--- NOTE | 2024-09-03 17:46 | NUR ---
PT A/OX4 AND HARD OF HEARING OUT OF RIGHT EAR. PT WAS ON 15L OXYMASK BUT CONTINUED TO DESAT. RESPIRTORY THERAPY CONSULTED AND BEGAN FIO2 71% 30L VIA AIRVO. PT SPO2 MAINTAINED >90%. PT 2 PERSON ASSIST TO BEDSIDE COMMODE AND HAD BM. PT TOLERATED WELL AND MAINTAIN >90%. WICKING SYSTEM IN PLACE. SINUS RHYTHM 70S-80S. SBP 100S. RIGHT CHEST WALL DRESSING WNL. PT C/O PAIN AT INCISION SITE. MEDICATED PER EMAR. PT REPORTS NO PAIN AFTER MEDICATION. THORACENTESIS PLANNED TOMORROW. LR 50 ML/HR RUNNING IN L FOREARM. BED LOW AND LOCKED AND AT BEDSIDE.
[2024-09-03 21:15] VITALS: BP 113/61
[2024-09-03] MEDS ORDERED: Vancomycin HCL 1,000 MG in NS 250 ML IV SCH (22:00)
[2024-09-04 00:21] VITALS: BP 118/71
[2024-09-04 04:19] LABS: Hematocrit 24.5 % (33.0-51.0); Hemoglobin 7.7 g/dL (11.5-16.0); Mean Corpuscular HGB 33.6 pg (26.0-34.0); Mean Corpuscular HGB Conc 31.4 g/dL (31.5-36.5); Mean Corpuscular Volume 107 fL (80-100); Mean Platelet Volume 10.7 fL (9.1-12.4); NRBC ABSOLUTE 0.03 K/mm3 (0.00-0.02); NRBC Auto 0.1 /100 WBC (0.0-0.2); Platelet Count 102 K/mm3 (150-400); RDW Coefficient Variation 14.5 % (11.7-14.2); RDW Standard Deviation 56.1 fL (35.1-46.3); Red Blood Cell Count 2.29 M/mm3 (3.80-5.20); White Blood Cell Count 21.98 K/mm3 (4.00-11.30)
[2024-09-04 04:23] VITALS: BP 139/74
[2024-09-04 04:41] LABS: Albumin, Blood 2.7 g/dL (3.4-5.0); Albumin/Globulin Ratio 0.8 (0.8-1.8); Bilirubin, Total 0.1 mg/dL (0.1-1.0); Bun/Creatinine Ratio 29.4 (12.0-20.0); Calcium, Blood 8.3 mg/dL (8.5-10.1); Creatinine, Blood 0.65 mg/dL (0.40-1.00); Globulin, Blood 3.5 g/dL (2.2-4.0); Magnesium, Blood 1.6 mg/dL (1.6-2.4); Potassium, Blood 4.1 mmol/L (3.5-5.5); Total Protein, Blood 6.2 g/dL (6.4-8.2)
[2024-09-04 04:44] LABS: BAND PERCENT MAN 21 % (0-8); BASOPHILS ABSOLUTE MAN 0.21 K/mm3 (0.00-0.23); BASOPHILS PERCENT MAN 1 % (0-2); EOSINOPHILS PERCENT MAN 0 % (0-6); LYMPHOCYTES ABSOLUTE MAN 1.31 K/mm3 (0.84-5.20); LYMPHOCYTES PERCENT MAN 6 % (21-46); MONOCYTES ABSOLUTE MAN 1.53 K/mm3 (0.16-1.47); MONOCYTES PERCENT MAN 7 % (4-13); MYELOCYTE ABSOLUTE MAN 0.43 K/mm3 (0.00-0.00); MYELOCYTE PERCENT MAN 2 % (0-0); NEUTROPHILS ABSOLUTE MAN 18.46 K/mm3 (1.96-9.15); SEG NEUTROPHILS PERCENT MAN 63 % (41-73); TOTAL CELLS COUNTED 100
--- NOTE | 2024-09-04 06:38 | NUR ---
PT PLEASANT THROUGHOUT SHFIT, VSS, RRR AND UNLABORED, REMAINS ON HI-YARIEL OXYGEN THROUGHOUT NIGHT IV ABX AND IVF ADMINISTERING NO CONERNS AT THIS TIME REPOSITIONED THROUGHOUT SHIFT.
[2024-09-04 07:26] VITALS: BP 113/63
[2024-09-04 10:07] LABS: Vancomycin, Trough 16.3 ug/mL (5.0-10.0)
[2024-09-04 11:00] VITALS: BP 113/65
--- NOTE | 2024-09-04 16:12 | NUR ---
PLEUREX DRAINED WITH PALLIATIVE CARE AND SPOUSE PRESENT FOR EDUCATION. PT TOLERATED WELL BUT DID SLOW RATE D/T TUGGING AND PRESSURE SENSATION REPORTED BY PT. DOCUMENTED UNDER OTHER DRAIN NUMBER 1 IN I&OS. 850CC OF DARK, CRANBERRY OUTPUT.
--- NOTE | 2024-09-04 16:33 | NUR ---
RIGHT THORASIC PLEURX SITE ASSESSED PRIOR TO INITIATING PLEURX DRAINING. SMALL AMOUNT OF DARK RED DISCHARGE AT SITE OF PLEURX PIGTAIL. REMOVED PREVIOUS DRESSINGS W/O COMPLICATIONS. EDUCATION PROVIDED TO PT, SPOUSE, DTR, TRAINING RN AND PRIMARY RN ON HOW PLEURX DRAINS WORK AND WALKED THEM THROUGH THE PROCESS. 850 ML DARK CRANBERRY FLUID DRAINED. THE LAST 250 ML OF FLUID WAS THICK. AT APX 400 ML PT STARTED TO BECOME RESTLESS. THIS PC RN SLOWED THE FLOW OF DRAINAGE TO ASSIST WITH COMFORT. PT WAS NOT ABLE TO TOLERATE GREATER THAN 850 ML BEING REMOVED. WILL REASSESS AND ATTEMPT DRAINING AGAIN TOMORROW 09/05/24. PC TO REMAIN AVAILABLE.
[2024-09-04 16:53] VITALS: BP 112/73
--- NOTE | 2024-09-04 17:37 | NUR ---
PT A/OX4 AND IS ON AIRVO 40L FIO2 57% SPO2 >90%. PT DESAT TO 70S WHILE USING BEDPAN AT START OF SHIFT. AIRVO ADJUSTED 40L 56% AND SPO2 INCREASED TO 90S. RESPIRATORY THERAPY CONSULTED AND ADJUSTED AIRVO APPROPRIATELY. PLEUREX DRAINED WITH AN 850 ML DARK, CRANBERRY THICK OUTPUT CHARTED UNDER OTHER DRAIN NUMBER ONE. BED IS LOW AND LOCKED AND CALL LIGHT WITHIN REACH.
[2024-09-04 20:11] VITALS: BP 104/76
[2024-09-05 01:30] VITALS: BP 98/71
--- NOTE | 2024-09-05 04:08 | NUR ---
[place] WAS PLEASANT ALL NIGHT, PRN TYLENOL ADMINISTERED PER PT REQUEST RATING PAIN A 1-2/10 FOR GENERALIZED DISCOMFORT. PT RESTED THROUGHOUT NIGHT, IVF AND IV ABX ADMINISTERED, HI-FLOW/OXIMIZER REMAINS IN PLACE WITH NO CHANGES IN SETTINGS, ALL O2 SATS ABOVE 90, RECOVERS QUICKLY AFTER ANY REPOSITIONING. PUREWICK IN PLACE, PT MORE ALERT COMPARED TO PAST 2 NIGHTS THIS RN HAS HAD PATIENT. NO CONCERNS AT THIS TIME, VSS, DENIES SOB/CHEST PAIN, PLEURX SITE CDI, AND PLAN OF CARE NEEDS TO CONTINUE TO DEVELOP SO PT CAN HAVE AN ACTUAL PLAN, HOWEVER PT WAS CONTENT DURING SHIFT AND DID NOT HAVE ANY CONCERNS TO REPORT TO RN. REPOSITIONED APPROPRIATELY, PO SENNA AND PO MIRALAX HELD, ABLE TO TAKE OTHER PO MEDICATION (PROBIOTIC) WELL, DRANK WATER, NO CONCERNS AT THIS TIME. HR STILL SR IN THE 70S.
[2024-09-05 04:46] LABS: Hematocrit 23.8 % (33.0-51.0); Hemoglobin 7.6 g/dL (11.5-16.0); Mean Corpuscular HGB 33.6 pg (26.0-34.0); Mean Corpuscular HGB Conc 31.9 g/dL (31.5-36.5); Mean Corpuscular Volume 105 fL (80-100); Mean Platelet Volume 10.8 fL (9.1-12.4); NRBC ABSOLUTE 0.03 K/mm3 (0.00-0.02); NRBC Auto 0.1 /100 WBC (0.0-0.2); Platelet Count 119 K/mm3 (150-400); RDW Coefficient Variation 14.6 % (11.7-14.2); RDW Standard Deviation 55.8 fL (35.1-46.3); Red Blood Cell Count 2.26 M/mm3 (3.80-5.20); White Blood Cell Count 20.85 K/mm3 (4.00-11.30)
[2024-09-05 05:08] LABS: Albumin, Blood 2.5 g/dL (3.4-5.0); Albumin/Globulin Ratio 0.7 (0.8-1.8); Bilirubin, Total 0.1 mg/dL (0.1-1.0); Bun/Creatinine Ratio 29.9 (12.0-20.0); Creatinine, Blood 0.64 mg/dL (0.40-1.00); Globulin, Blood 3.5 g/dL (2.2-4.0); Magnesium, Blood 1.6 mg/dL (1.6-2.4); Potassium, Blood 4.3 mmol/L (3.5-5.5)
[2024-09-05 05:26] LABS: BAND PERCENT MAN 18 % (0-8); BASOPHILS PERCENT MAN 0 % (0-2); EOSINOPHILS PERCENT MAN 0 % (0-6); LYMPHOCYTES ABSOLUTE MAN 0.62 K/mm3 (0.84-5.20); LYMPHOCYTES PERCENT MAN 3 % (21-46); METAMYELOCYTE ABSOLUTE MAN 0.41 K/mm3 (0.00-0.00); METAMYELOCYTE PERCENT MAN 2 % (0-0); MONOCYTES ABSOLUTE MAN 1.25 K/mm3 (0.16-1.47); MONOCYTES PERCENT MAN 6 % (4-13); MYELOCYTE PERCENT MAN 1 % (0-0); NEUTROPHILS ABSOLUTE MAN 18.34 K/mm3 (1.96-9.15); SEG NEUTROPHILS PERCENT MAN 70 % (41-73); TOTAL CELLS COUNTED 100
[2024-09-05 07:39] VITALS: BP 99/70
[2024-09-05 09:47] LABS: Vancomycin, Trough 20.8 ug/mL (5.0-10.0)
[2024-09-05 10:43] VITALS: BP 106/65
[2024-09-05] MEDS ORDERED: Vancomycin HCL 750 MG in NS 250 ML IV SCH (12:00)
[2024-09-05] MEDS ORDERED: LORazepam 0.5 MG Tab PO PRN (14:35)
--- NOTE | 2024-09-05 14:38 | NUR ---
VERBAL ORDER OBTAINED FROM DR. QUIROS FOR ATIVAN. ORDER PLACED ACCORDINGLY. UPDATE PROVIDED TO PRIMARY RN.
--- NOTE | 2024-09-05 16:51 | NUR ---
DRAINED PLEURX ON RIGHT SIDE. SURGICAL SITE FOR PLEURX WNL, SCANT PINK DRAINAGE ON SPONGE. THICK DARK RED CLOTTED DRAINAGE. PT WAS ABLE TO TOLERATE UP TO 200ML'S. BEGAN C/O PRESSURE, SOB, REPORTS DYSPNEA WAS WORSE DURING PLEURX DRAINING THAN IT WAS PRIOR. MAX 500ML'S DRAINED WITH NOTED RESIDUAL. ORIENTING RN MARVIN PRESENT. AT END OF VISIT, DR. CONNOR TO ROOM, REVIEWED PLEURX FLUIDS, HE REVIEWED WITH PT AND DAUGHTER. HE STATES THE FLUIDS AND FIBROUS MATERIAL WITHIN THE FLUID WAS MORE INDICATIVE OF CANCER VS TREATMENT RESIDUALS OR INFECTION. DR. CONNOR ASKED PT IF IT WAS MORE IMPORTANT TO GET HOME OR BE COMFORTABLE NOW IN HOSPITAL. PT UNABLE TO ANSWER. STATES HE WILL DISCUSS WITH PT'S DECISION MAKER. PCRN CONTACTED DR. QUIROS, UPDATED POST ONCOLOGY VISIT. PLAN TO POTENTIALLY START COMFORT CARE ONCE FAMILY ARRIVES FROM OUT OF STATE. PC RN TO RE-EVALUATE TOMORROW MORNING. UPDATE PROVIDED TO RT, PRIMARY RN, PARTS FABRICATOR AND PT'S SPOUSE.
[2024-09-05 18:58] VITALS: BP 83/59
--- NOTE | 2024-09-05 19:23 | NUR ---
SHIFT SUMMARY PATIENT AOX3 AND ABLE TO MAKE NEEDS KNOWN. SHE IS WEAK AND DENIES PAIN, SHE IS ON THE VAPOTHERM TO MAINTAIN HER OXYGEN SATURATION. SHE HAD THE PLUEREX DRAINED BY THE PALLIATIVE NURSE TODAY. SHE DENIED A FEW OF HER MEDICATIONS DOCUMENTED IN THE CHART. HER BLOOD PRESSURE IS SOFT WITH THE SBP IN THE 80s THE HOSPITALIST IS AWARE.
[2024-09-05 19:56] VITALS: BP 103/62
[2024-09-06 00:14] VITALS: BP 99/66
[2024-09-06 04:15] VITALS: BP 106/73
--- NOTE | 2024-09-06 06:54 | NUR ---
SHIFT SUMMARY: PT IS A&OX4, [facility], PLEASANT AND APPRECIATIVE OF CARE. PT IS LETHARGIC BUT AWAKENS EASILY TO VERBAL STIMULI. VSS ON AIRVO, 40L 57%. WHEN PT IS LAYING MORE FLAT AND GETTING CLEANED UP, SHE QUICKLY DESATS TO 77-80%. C/O PAIN TO HER RIGHT LUNG AREA, AND GENERALIZED AREA. PLEURX DRAIN SITE DRESSING C/D/I. AT BEDSIDE T/O THIS SHIFT. PT REFUSED ALL HS MEDICATIONS. STATES SHE TAKES PILLS IN APPLESUACE. NOOB THIS SHIFT. ON A REGULAR DIET. POOR APPETITE WITH MINIMAL PO INTAKE. WICKING SYSTEM IN PLACE DRAINING ADEQUATE AMOUNTS OF CLEAR YELLOW URINE. INCONTINENT SMALL, BROWN BM X1 THIS SHIFT. BED IN LOWEST POSITION, CALL LIGHT WITHIN REACH. CALLS APPROPRIATELY AND IS ABLE TO ADVOCATE NEEDS EFFECTIVELY.
[2024-09-06 07:23] VITALS: BP 98/69
[2024-09-06 13:18] VITALS: BP 103/62
[2024-09-06 16:18] VITALS: BP 111/72
--- NOTE | 2024-09-06 18:30 | NUR ---
SHIFT SUMMARY PATIENT AOX4 ABLE TO MAKE NEEDS KNOWN. SHE IS WEAK AND DOES HAVE PAIN THAT IS MANAGED WITH OXY AND TYLENOL. SHE IS ABLE TO TAKE HER PILLS WITH APPLESAUCE. SHE REFUSES HER STOOL SOFTENERS AND PROBIOTICS. HER O2 SATS ARE GREATER THAN 90% ON THE AIRVO AT 35L AND 50% BUT WHEN SHE EXERTS HERSELF FOR THE BEDPAN AND LYING FLAT IT DOES NEED TO BE INCREASED TO MAINTAIN HER SATS UNTIL SHE FINISHES. HER FAMILY IS AT BEDSIDE HELPING TAKE CARE OF HER ASWELL.
[2024-09-06 19:19] VITALS: BP 112/68
--- NOTE | 2024-09-06 22:16 | NUR ---
ASSUMPTION OF CARE PT A&O X4, CALM, COOPERATIVE TO CARE. PT WITH GENERALIZED WEAKNESS. HR IN THE 60'S, SINUS RHYTHM. SHE DENIES CP/PRESSURE, NUMB/TINGLING, SBP STABLE. O2 >92% ON AIRVO, PT DESATS OCASIONALLY, RECOVERS WITH BRIEF INCREASE IN OXYGEN AND IS ABLE TO TITRATE DOWN. PT WITH A PUREWICK IN PLACE, DRAINING YELLOW URINE. PT HAS RIGHT PLUREX, DRESSING C/D/I. SHE DENIES PAIN AT SITE. PT RESTING IN BED AT THSI TIME. CALL LIGHT IN REACH.
[2024-09-06 23:55] LABS: Vancomycin, Trough 20.3 ug/mL (5.0-10.0)
[2024-09-07 00:23] VITALS: BP 103/64
[2024-09-07 03:21] VITALS: BP 103/60
[2024-09-07] MEDS ORDERED: Vancomycin HCL 1,000 MG in NS 250 ML IV SCH (06:00)
--- NOTE | 2024-09-07 06:24 | NUR ---
SHIFT SUMMARY PT A&O X4, CALM, COOPERATIVE TO CARE. PT SLEEPY T/O SHIFT BUT EASILY AROUSED. HR IN THE 70'S, SINUS RHYTHM, DENIES CP/PRESSURE, NUMB/TINGLING. SBP IN THE 100'S, MAP >65, PT ON AIRVO 35LPM FIO2 52%, O2 >90%. PT WITH PLUERX TO RIGHT CHEST, SHE DENIES PAIN TO AREA. PUREWICK IN PLACE, DRAINING YELLOW URINE TO GRAVITY. NO ACUTE CHANGES T/O SHIFT. LR RUNNING PER EMAR. PT RESTING IN BED AT THIS TIME. CALL LIGHT IN REACH. WILL MONITOR PT AND REPORT TO ONCOMING RN.
[2024-09-07 07:27] VITALS: BP 105/64
[2024-09-07] MEDS ORDERED: Morphine Sulfate 20 MG/1ML 1 ML Oral Syringe SL PRN (09:40)
[2024-09-07] MEDS ORDERED: LORazepam 1 MG Tab PO PRN (09:40)
[2024-09-07] MEDS ORDERED: Atropine Sulfate 1% Opth Soln 2ML BTL SL PRN (09:40)
[2024-09-07] MEDS ORDERED: LORazepam 2 MG/ML 1ML Injection IV PRN (09:40)
[2024-09-07] MEDS ORDERED: Acetaminophen 650 MG Supp PR PRN (09:40)
[2024-09-07] MEDS ORDERED: Promethazine HCl 25 MG Supp PR PRN (09:40)
[2024-09-07] MEDS ORDERED: Ondansetron HCl 2 MG / ML 2ML Vial IV PRN (09:40)
[2024-09-07] MEDS ORDERED: Scopolamine Hydrobromide Patch TOP PRN (09:40)
--- NOTE | 2024-09-07 09:49 | NUR ---
SUPPORTIVE VISIT: TRANSITION TO COMFORT CARE JOINT VISIT THIS MORNING WITH DR. QUIROS AND FAMILY. HSJEFFERY DAVIS REPORTS PT AND FAMILY ARE READY TO CHANGE COURSE OF TREATMENT LATER THIS MORNING WHEN SPOUSE IS ABLE TO RETURN TO BEDSIDE. PLAN IT TO PRE-MEDICATE PRIOR TO WEANING OF OXYGEN TX. PC TO BE AVAILABLE NEEDED.
--- NOTE | 2024-09-07 10:08 | NUR ---
COMFORT CARE ORDERS PLACED PT PROVIDER REQUEST.
--- NOTE | 2024-09-07 14:19 | NUR ---
Spiritual care visit conducted. The patient's spouse, Ashish, in the hallway outside the patient's room. We talk at length about his thoughts on , dying and the afterlife. He shares about being a combat vet and the horrible things he went through and the powerful lessons he ahs learned about holding the brutality and beauty of life together, to take in the depth of loss and suffering and look for that which is deep, real and good. I provided therapeutic listening, a calming presence, and guiding thoughts about navigating this moment. Ashish responded well and showed signs of being comforted. I will cotninue to remain available to patient and family.
--- NOTE | 2024-09-07 18:13 | NUR ---
SHIFT SUMMARY BEGINING OF SHIFT PATIENT WAS A0X4 ABLE TO MAKE NEEDS KNOWN. VITALS ARE STABLE AND PATIENT SATTING IN THE 90 ON THE AIRVO. SHE AND HER FAMILY DECIDED ON COMFORT CARE. SHE STARTED OFF ON AIRVO AND THEN WAS TRANSITIONED TO THE OXY MASK AT 15L. PATIENT WAS STARTED ON PO MORPHINE AND PO ATIVAN PER THE MAR. ON THE OXY MASK THE PATIENT WAS SATTING AT 99% AND SLEEPING COMFOTABLY. HER O2 WAS DECREASED TO 12L, 10L AND THEN 9L STILL SATTING AT 98%. HER OXY MASK WAS DECREASED TO 7L AND SHE WAS GIVEN ANOTHER DOSE OF ATIVAN AND MORPHINE PO AND SATTING AT 96% SLEEPING COMFORTABLY WITH FAMILY IN THE ROOM. THE FAMILY WAS INFORMED THE 02 WOULD CONTINUE TO BE DECRESED AND THE PATIENT WOULD BE MEDICATED ACCORDING TO HER MED ORDERS TO KEEP HER COMFORTABLE.
--- NOTE | 2024-09-08 05:13 | NUR ---
SHIFT SUMMARY PT SLEEPY T/O SHIFT. WAKES WITH VERBAL STIMULI. ANSWERS ORIENTATION QUESTIONS. PT ON COMFORT CARE, MONITORING O2, NO TELEMETRY. PT DENIES ANY CHEST DISCOMFORT OR PAIN. O2 RANGING FROM 86-92% ON 4.5L VIA FACE MASK, TITRATING DOWN SLOWLY PER FAMILY REQUEST. MEDICATING PT WITH PRN ATIVAN AND MORPHINE. PT RESTING IN BED NOW. FAMILY AT BEDSIDE. LOTS OF EDUCATION PROVIDED TO FAMILY T/O SHIFT. WILL MONITOR PT AND REPORT TO ONCOMING RN.
--- NOTE | 2024-09-08 10:52 | NUR ---
"Spiritual Care | Nurse/Family request Pt. is on comfort care and is mostly not responsive. Spouse and family are at bedside. Facilitate a life review as nurse Benavides is providing comfort care medication. Spouse has seen branch manager trainee Henri. Considered matters of nilson and belief. Listen with empathy and interest. Prayed for the Pt. Spouse verbalized that there were plans to have grandchildren come later in day. Spouse and daughters verbalize gratitude for the spiritual care visit. Will remain availble to Pt. and family. No EOL decisions have been discussed at this time."
--- NOTE | 2024-09-08 11:19 | NUR ---
AM NOTE this rn assumed care at 0700. patient is comfort care status. this rn spoke with thai and daughter everardo. patient is resting comfortably in the room at this time
--- NOTE | 2024-09-08 12:00 | NUR ---
"Spiritual Care | Comfort Care | EOL Education Pt. continues to linger on comfort care. Meet with spouse in the hallway as he is going for a walk. EOL Education is given, and Spouse informs this pin sorter and bagger that the family has made pre-arrangements with [facility]. I confirmed with the Spouse that the hospital will make that call for them. Spouse verbalized understanding, agreement, and gratitude."
--- NOTE | 2024-09-08 18:30 | NUR ---
shift summary patient medicated throughout the day for comfort measure. family at bedside throughout the day. no acute changes.
--- NOTE | 2024-09-08 19:20 | NUR ---
update-final note this rn while giving report to arturo baeza and going into the room for bedside shift report family in room crying over patient stating "she is gone". this rn and arturo baeza did a two rn verification and the patient time of is 1909. this rn informed charge hand supriya. home is [facility].
== END 2024-09-08 21:56 | DRG 180 ==
LOC: ER 09:46 → MEDS 16:36 → PCU 16:36 → MEDS 20:27 → PCU 09-02 11:30
PROVIDERS: Emergency Medicine; Family Medicine; Hospitalist; Student in an Organized Health Care Education/Training Program; Surgery; ADMIT Internal Medicine
PROC: 0W993ZZ Drainage of Right Pleural Cavity, Percutaneous Approach (ICD-10-PCS; 2024-08-29)
PROC: 0W9B3ZZ Drainage of Left Pleural Cavity, Percutaneous Approach (ICD-10-PCS; 2024-08-31)
PROC: 5A09357 Assistance with Respiratory Ventilation, Less than 24 Consecutive Hours, Continuous Positive Airway Pressure (ICD-10-PCS; 2024-09-02)
PROC: 4A033R1 Measurement of Arterial Saturation, Peripheral, Percutaneous Approach (ICD-10-PCS; 2024-09-02)
PROC: 0W9930Z Drainage of Right Pleural Cavity with Drainage Device, Percutaneous Approach (ICD-10-PCS; principal; 2024-09-02 07:00)
PROC: 5A0935A Assistance with Respiratory Ventilation, Less than 24 Consecutive Hours, High Flow/Velocity Cannula (ICD-10-PCS; 2024-09-03)
PROC: 0T9B70Z Drainage of Bladder with Drainage Device, Via Natural or Artificial Opening (ICD-10-PCS; 2024-09-07)
DX: C34.91 Malignant neoplasm of unspecified part of right bronchus or lung (principal); D61.810 Antineoplastic chemotherapy induced pancytopenia; J18.9 Pneumonia, unspecified organism; J96.21 Acute and chronic respiratory failure with hypoxia; J96.22 Acute and chronic respiratory failure with hypercapnia; J91.0 Malignant pleural effusion; J44.0 Chronic obstructive pulmonary disease with (acute) lower respiratory infection; Z51.5 Encounter for palliative care; Z66 Do not resuscitate; D84.9 Immunodeficiency, unspecified; R64 Cachexia; Z68.1 Body mass index [BMI] 19.9 or less, adult; D61.818 Other pancytopenia; R59.0 Localized enlarged lymph nodes; T45.1X5A Adverse effect of antineoplastic and immunosuppressive drugs, initial encounter; F51.04 Psychophysiologic insomnia; F41.9 Anxiety disorder, unspecified; Z88.8 Allergy status to other drugs, medicaments and biological substances; Z87.891 Personal history of nicotine dependence
CPT/HCPCS: 0241U; 32555; 36415; 36600; 71045; 71046; 71250; 71260; 80053; 80202; 82607; 82746; 82803; 83735; 83880; 84100; 84145; 84484; 85025; 85610; 85730; 93005; 93010; 93306; 94660; 94762; 97110; 97161; 97530; 99285-25; A6590; A9270; C1729; J0456; J0692; J0696; J2060; J2250; J2405; J2704; J3010; J3370; J3475; J7050; J7120; Q9967